=== PATIENT | female | born 1970 | race Hispanic/Latino ===

== ENCOUNTER 2020-03-24 19:39 | Observation (INO) | payer OTHER ==
[~2020-03-24] VITALS: Ht 157.5 cm; Wt 93.4 kg
[2020-03-24 19:54] LABS: BASOPHILS % (AUTO) 0.5 % (0.0-5.0); EOSINOPHILS % (AUTO) 3.5 % (0.0-8.0); LYMPHOCYTES % (AUTO) 24.1 % (21.0-51.0); MEAN CORPUSCULAR HEMOGLOBIN 27.3 pg (27.0-33.0); MEAN CORPUSCULAR VOLUME 82.8 fL (79-99); MONOCYTES % (AUTO) 9.4 % (3.0-13.0); NEUTROPHILS % (AUTO) 62.2 % (40.0-77.0); PLATELET COUNT (AUTO) 495 K/uL (130-400); RED BLOOD CELL COUNT(AUTO) 4.83 MIL/uL (4.00-5.50); RED CELL DISTRIBUTION WIDTH 13.6 % (11.0-15.5); WHITE BLOOD COUNT (AUTO) 10.9 K/uL (4.8-10.8)
[2020-03-24] MEDS ORDERED: ASPIRIN 325 MG TABLET ONE (19:56)
[2020-03-24] MEDS ORDERED: NITROGLYCERIN 0.4 MG SL TAB SL ONE (19:56)
[2020-03-24 20:05] LABS: CREATININE 0.9 mg/dL (0.5-1.5); POTASSIUM 4.1 mmol/L (3.5-5.1)
[2020-03-24 20:09] LABS: INR 0.87 (0.85-1.15); PARTIAL THROMBOPLASTIN TIME 24.3 SEC (26.3-35.5); PROTHROMBIN TIME 9.4 SEC (9.6-11.6)
[2020-03-24 20:10] LABS: BILIRUBIN,TOTAL 0.3 mg/dL (0.2-1.0)
[2020-03-24] MEDS ORDERED: LACTULOSE 20 GM/30 ML UDCUP PO PRN (22:30)
[2020-03-24] MEDS ORDERED: NITROGLYCERIN 0.4 MG SL TAB SL PRN (22:30)
[2020-03-24] MEDS ORDERED: HYDRALAZINE HCL 20 MG/ML VIAL IV PRN (22:30)
[2020-03-24] MEDS ORDERED: ONDANSETRON HCL 4 MG/2 ML VIAL IV PRN (22:30)
[2020-03-24] MEDS ORDERED: ACETAMINOPHEN 325 MG TAB PO PRN ×2 (22:30)
[2020-03-24 22:48] LABS: HEMOGLOBIN A1C 5.8 % (4.0-6.0)
[2020-03-24 22:53] LABS: THYROID STIMULATING HORMONE 2.66 uIU/mL (0.36-3.74)
--- NOTE | 2020-03-24 23:03 | NUR ---
Admission note: Admitted to floor from ER via stretcher. AOX4. Ambulatory. Denies pain at this time. Verbalized she's doin fine. Placed in bed according to her comfort. VS checked and recorded. Physical Assessment done. ( See CPOE flow chart for full assessment). No medical hx or surgical history. Plan of care initiated. No home medications noted. She was just taking OTC Diet pills which was started 2 wks ago as per pt report. Attached to Tele at bedside with NSR. Has IV site to RFA #20g, SL - patent and intact. Oriented to room and used of call lights. Policies and procedures explained. Agreed and verbalized understanding. Observed for any unusual changes. Needs attended and cared for. Distress / discomfort not noted.
[2020-03-24 23:04] VITALS: BP 151/77
[2020-03-25 02:19] LABS: BASOPHILS % (AUTO) 0.6 % (0.0-5.0); EOSINOPHILS % (AUTO) 3.5 % (0.0-8.0); HEMATOCRIT 36.4 % (36-48); LYMPHOCYTES % (AUTO) 21.6 % (21.0-51.0); MEAN CORPUSCULAR HEMOGLOBIN 27.1 pg (27.0-33.0); MEAN CORPUSCULAR VOLUME 82.2 fL (79-99); MONOCYTES % (AUTO) 9.2 % (3.0-13.0); NEUTROPHILS % (AUTO) 64.8 % (40.0-77.0); PLATELET COUNT (AUTO) 440 K/uL (130-400); RED BLOOD CELL COUNT(AUTO) 4.43 MIL/uL (4.00-5.50); RED CELL DISTRIBUTION WIDTH 13.6 % (11.0-15.5)
[2020-03-25 02:33] LABS: CREATININE 0.7 mg/dL (0.5-1.5); POTASSIUM 3.7 mmol/L (3.5-5.1)
[2020-03-25 03:51] VITALS: BP 145/74
[2020-03-25 08:01] VITALS: BP 132/78
[2020-03-25] MEDS: ASPIRIN 325 MG TABLET PO SCH (09:00)
[2020-03-25] MEDS ORDERED: ASPIRIN 81MG TAB.CHEW ONE (09:04)
[2020-03-25] MEDS: METOPROLOL TARTRATE 25 MG TAB PO SCH ×2 (09:08→20:45)
[2020-03-25] MEDS: FAMOTIDINE 20MG TAB 20 MG TAB PO SCH ×2 (09:08→20:45)
[2020-03-25] MEDS: ENOXAPARIN SODIUM 40 MG/0.4 ML SYRINGE SQ SCH (09:10)
[2020-03-25 11:40] VITALS: BP 115/76
[2020-03-25 17:05] VITALS: BP 126/78
[2020-03-25 19:39] VITALS: BP 131/79
[2020-03-25] MEDS: ATORVASTATIN CALCIUM 20 MG TABLET PO SCH (20:44)
[2020-03-25 23:07] VITALS: BP 117/70
[2020-03-26 04:01] VITALS: BP 120/70
--- NOTE | 2020-03-26 08:00 | NUR ---
AM SHIFT ASSESSMENT. NPO FOR STRESS TEST THIS AM, ALSO PENDING A 2 DECHO
[2020-03-26 08:42] VITALS: BP 131/66
[2020-03-26] MEDS: ASPIRIN 325 MG TABLET PO SCH (09:00)
[2020-03-26] MEDS: METOPROLOL TARTRATE 25 MG TAB PO SCH ×2 (09:00→20:27)
[2020-03-26] MEDS: ENOXAPARIN SODIUM 40 MG/0.4 ML SYRINGE SQ SCH (09:00)
[2020-03-26] MEDS: FAMOTIDINE 20MG TAB 20 MG TAB PO SCH ×2 (09:00→20:27)
[2020-03-26 12:00] VITALS: BP 137/79
--- NOTE | 2020-03-26 13:02 | NUR ---
NEW IV START,22G LT. HAND.
--- NOTE | 2020-03-26 15:30 | NUR ---
STRESS TEST COMPLETE. TOLERATED WELL.
[2020-03-26 17:57] VITALS: BP 151/89
[2020-03-26 19:49] VITALS: BP 132/77
[2020-03-26] MEDS: ATORVASTATIN CALCIUM 20 MG TABLET PO SCH (20:27)
[2020-03-26 23:42] VITALS: BP 111/65
[2020-03-27 04:00] VITALS: BP 111/59
[2020-03-27 06:16] LABS: BASOPHILS % (AUTO) 0.7 % (0.0-5.0); EOSINOPHILS % (AUTO) 6.7 % (0.0-8.0); HEMATOCRIT 36.4 % (36-48); LYMPHOCYTES % (AUTO) 32.2 % (21.0-51.0); MEAN CORPUSCULAR HGB CONC 33.2 g/dL (32.0-36.0); MEAN CORPUSCULAR VOLUME 81.3 fL (79-99); MONOCYTES % (AUTO) 10.3 % (3.0-13.0); PLATELET COUNT (AUTO) 426 K/uL (130-400); RED BLOOD CELL COUNT(AUTO) 4.48 MIL/uL (4.00-5.50); RED CELL DISTRIBUTION WIDTH 14.1 % (11.0-15.5); WHITE BLOOD COUNT (AUTO) 7.3 K/uL (4.8-10.8)
[2020-03-27 06:44] LABS: CARBON DIOXIDE 30 mmol/L (21-32); CHLORIDE 104 mmol/L (101-111); CREATININE 0.7 mg/dL (0.5-1.5); GLOMERULAR FILTR. RATE CALC 95 mL/min (>60); GLUCOSE,RANDOM 105 mg/dL (70-105); POTASSIUM 3.6 mmol/L (3.5-5.1); SODIUM SERUM 141 mmol/L (136-145); UREA NITROGEN, BLOOD 9 mg/dL (7-18)
--- NOTE | 2020-03-27 08:43 | NUR ---
TALKED TO DR. CARPENTER, HE WILL BE ROUNDING SOON AND PROBABLY DISCHARGE PATIENT.
--- NOTE | 2020-03-27 08:53 | NUR ---
DC TO HOME TODAY T LIVES WITH SPOUSE, IS ACTIVE AND INDPENDENT . NO DC NOTTES. DETAILED CM ASSESSMENT DEFERRED Addendum: 03/28/20 at 0914 by JACKLYN MAZA RN CM Amended: Links added.
[2020-03-27] MEDS: FAMOTIDINE 20MG TAB 20 MG TAB PO SCH (09:31)
[2020-03-27] MEDS: ASPIRIN 325 MG TABLET PO SCH (09:31)
[2020-03-27] MEDS: METOPROLOL TARTRATE 25 MG TAB PO SCH (09:31)
[2020-03-27] MEDS: ENOXAPARIN SODIUM 40 MG/0.4 ML SYRINGE SQ SCH (09:32)
[2020-03-27 10:30] VITALS: BP 137/75
[2020-03-27 12:13] VITALS: BP 131/74
--- NOTE | 2020-03-27 14:45 | NUR ---
DISCHARGED USING TEACH BACK. SALINE LOCK AND HEART MONITOR REMOVED. APPT. AND MED. INST. GIVEN AND VERBALIZES UNDERSTANDING
== END 2020-03-27 15:00 | disposition home or self-care (01) ==
LOC: EDH 19:39 → EDHIP 22:24 → 3DH 22:48
PROVIDERS: ADMIT Internal Medicine; ATTEND Internal Medicine
DX: R07.2 Precordial pain (principal); I10 Essential (primary) hypertension; E78.5 Hyperlipidemia, unspecified; E66.3 Overweight; K21.9 Gastro-esophageal reflux disease without esophagitis; Z68.37 Body mass index [BMI] 37.0-37.9, adult; Z87.891 Personal history of nicotine dependence
CPT/HCPCS: 36415 ×3; 71045; 78452; 80048 ×2; 80053; 80061; 82550; 83036; 83735; 84145; 84443; 84484 ×3; 85025 ×3; 85610; 85730; 86677; 93005 ×3; 93017; 93306; 93356; 96372 ×2; 99285; A9500 ×2; G0378 ×3; J1650 ×3; 96374